=== PATIENT | male | born 1995 | race Caucasian/White ===

== ENCOUNTER 2016-06-20 00:50 | Emergency (ER) | payer OTHER ==
[~2016-06-20] VITALS: Ht 185.4 cm; Wt 87.0 kg
[2016-06-20 00:55] VITALS: TEMP 36.5; Ht 185.4 cm; Wt 87.0 kg
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
[2016-06-20 01:55] LABS: URINE APPEARANCE CLEAR (CLEAR); URINE BILIRUBIN NEG (NEG); URINE COLOR YELLOW; URINE NITRITE NEG (NEG); URINE PH 5.5 (4.5-7.5); UROBILINOGEN NEG (NEG)
[2016-06-20 02:11] LABS: BUN/CREATININE RATIO 11.9 (10-20); CALCIUM 8.1 mg/dl (8.5-10.1); CREATININE 1.1 mg/dl (0.60-1.40); POTASSIUM 3.3 mmol/L (3.5-5.1)
[2016-06-20 02:14] LABS: BENZODIAZEPINE, URINE NEG (NEG); COCAINE,URINE POS (NEG); PHENCYCLIDINE, URINE NEG (NEG)
[2016-06-20 02:16] LABS: MANUAL MICROSCOPIC REQUIRED? NO; REVIEW REQ? NO
[2016-06-20 02:20] LABS: HEMATOCRIT 43.1 % (42-52); MEAN CELL VOLUME 84.2 fL (80-100); MEAN CORPUSCULAR HEMOGLOBIN 29.1 pg (25-34); MEAN CORPUSCULAR HGB CONC 34.6 g/dl (32-36); MEAN PLATELET VOLUME 9.8 fL (7.4-10.4); PLATELET COUNT 184 K/uL (130-400); RED BLOOD COUNT 5.12 M/uL (4.7-6.1); WHITE BLOOD COUNT 6.75 K/uL (4.8-10.8)
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
[2016-06-20] MEDS ORDERED: ACETAMINOPHEN 500 MG TAB PO STA (09:48)
[2016-06-20 10:14] VITALS: BP 105/90; PULSE 73; O2SAT 100
[2016-06-23 15:51] LABS: COCAINE, URINE 419 NG/ML (CUTOFF=100)
== END 2016-06-20 10:23 | disposition home or self-care (01) ==
LOC: C.EDB 00:52
DX: T51.0X1A Toxic effect of ethanol, accidental (unintentional), initial encounter (principal); Y04.0XXA Assault by unarmed brawl or fight, initial encounter; S00.83XA Contusion of other part of head, initial encounter